=== PATIENT | male | born 1980 | race Caucasian/White ===

== ENCOUNTER 2016-05-17 02:05 | Emergency (ER) | payer OTHER ==
[2016-05-17 02:19] VITALS: RESP 18
[2016-05-17] MEDS ORDERED: DIPH,PERTUS(ACELL)TETVAC-LF 0.5 ML VIAL IM ONE (03:58)
--- NOTE | 2016-05-17 04:02 | ED ---
General Adult HPI - General Chief complaint: Wound/Laceration Stated complaint: Arm Laceration Time Seen by Provider: 05/17/16 03:47 Source: patient, RN notes reviewed Mode of arrival: ambulatory Limitations: no limitations - History of Present Illness Initial comments: This is a 35-year-old male presents the laceration to the right forearm. Patient states his arm went through a window. Patient does not think he is up- to-date on his tetanus shot. Patient denies any numbness/weakness or tingling in hands. Patient denies being on any anticoagulants.Patient denies any recent fever, chills, shortness breath, chest pain, abdominal pain, nausea/vomiting/ diarrhea, back pain, hematuria, headache, or visual changes, or any other complaints. - Related Data Previous Rx's Medication Instructions Recorded Cephalexin [Keflex] 500 mg PO Q12HR 5 Days 05/17/16 Allergies Allergy/AdvReac Type Severity Reaction Status Date / Time FISH Allergy Severe SWELLING Uncoded 05/17/16 02:19 IN THROAT Review of Systems ROS Statement: Those systems with pertinent positive or pertinent negative responses have been documented in the HPI. ROS Other: All systems not noted in ROS Statement are negative. Past Medical History Past Medical History: Musculoskeletal Disorder Additional Past Medical History / Comment(s): BACK PROBLEMS, OCC. BLOOD IN STOOL -HAS COLONOSCOPY SCHEDULED ? HEMORRHOIDS. History of Any Multi-Drug Resistant Organisms: None Reported Additional Past Surgical History / Comment(s): SURGERY ON FINGER FOR INJURY, COLONOSCOPY Past Anesthesia/Blood Transfusion Reactions: No Reported Reaction Past Psychological History: Anxiety, Depression Additional Psychological History / Comment(s): NO RX NOW. Smoking Status: Former smoker Past Alcohol Use History: None Reported Past Drug Use History: Marijuana Additional Drug Use History / Comment(s): CURRENTLY SMOKES MARIJUANA DAILY. General Exam - General Exam Comments Initial Comments: General: The patient is awake and alert, in no distress, and does not appear acutely ill. Neck: The neck is supple, there is no tenderness or JVD. Cardiovascular: There is a regular rate and rhythm. No murmur, rub or gallop is appreciated. Respiratory: Lungs are clear to auscultation, respirations are non-labored, breath sounds are equal. No wheezes, stridor, rales, or rhonchi. Musculoskeletal: Full range of motion, strength 5/5 and Sensation intact. Pulses 2+ bilaterally. Capillary refill is normal at less than 2 seconds. Neurological: A&O x 3. CN II-XII intact, There are no obvious motor or sensory deficits. Coordination appears grossly intact. Speech is normal. Skin: There is an approximately 3 cm laceration to the ulnar aspect of the right distal forearm. Skin is warm and dry and no rashes or lesions are noted. Psychiatric: Normal mood and affect. Limitations: no limitations Course Vital Signs 05/17/16 02:14 Temperature 98.2 F Pulse Rate 95 Respiratory 18 Rate Blood Pressure 151/78 O2 Sat by Pulse 98 Oximetry Procedures - Procedures Initial comment: The skin was anesthetized with 1% lidocaine. The laceration was then cleansed and irrigated with normal saline. The wound was inspected, and there was no evidence of injury to deep structures. No foreign body was noted in the wound. A total of 7 skin sutures were placed utilizing 5-0 Ethilon. Laceration is approx 2.5 cm. Medical Decision Making - Medical Decision Making Is a 35-year-old male presents laceration of the right forearm. Patient is not up-to-date on his tetanus shot and so he received a tetanus shot in the [facility] today. On physical exam there is an approximately 3 cm laceration to the ulnar aspect of the right distal forearm. X-ray of the right forearm was done and reviewed showing: No definite acute fracture or dislocation is suggested in the right forearm. Report read by Dr. Sierra. The skin was anesthetized with 1% lidocaine. The laceration was then cleansed and irrigated with normal saline. The wound was inspected, and there was no evidence of injury to deep structures. No foreign body was noted in the wound. A total of 7 skin sutures were placed utilizing 5-0 Ethilon. Laceration is approx 2.5 cm. Discussed that sutures should be removed in 8-10 days. Discussed suture care. Discussed that patient should not submerge the wound but rinsing and showering are okay. Please use [id number] Tylenol and/or Motrin as needed for any pain. Discussed the patient with a course of Keflex. Discussed Return parameters.Discussed that patient should follow up with PCP in one to 2 days or return to the [facility] for any worsening symptoms or for any further concerns. Patient was receptive to this plan and patient will be discharged home. Disposition Clinical Impression: Laceration Disposition: HOME SELF-CARE Condition: Good Instructions: Laceration (ED), Care For Your Stitches (ED) Additional Instructions: Please have sutures removed in 8-10 days. Please do not submerge the wound but rinsing and showering are okay. Please finish Entire course Of antibiotics. Please use [id number] Tylenol and/or Motrin as needed for any pain. Please follow-up with family doctor in the next 2 days of symptoms have not improved. Please return to emergency room if the symptoms increase or worsen or for any other concerns. Prescriptions: Cephalexin [Keflex] 500 mg PO Q12HR 5 Days Referrals: Asif Price MD [Primary Care Provider] - 1-2 days Time of Disposition: 05:08
--- NOTE | 2016-05-17 04:27 | XR ---
EXAMINATION TYPE: XR forearm RT DATE OF EXAM: 05/17/2016 4:03 AM COMPARISON: NONE HISTORY: Right wrist laceration TECHNIQUE: 2 radiographs of right forearm were obtained. FINDINGS: No definite acute fracture or dislocation is noted in the right wrist. Small densities are noted in the soft tissues of distal right forearm in the dorsal aspect in the lat eral view and is probably related to laceration changes. No definite radiopaque foreign body is sugge sted in the soft tissues of right forearm. Laceration or skin defect is noted in the ulnar aspect of right wrist in the dorsal view. IMPRESSION: No definite acute fracture or dislocation is suggested in the right forearm.
[2016-05-17 05:16] VITALS: BP 144/69; PULSE 88; TEMP 97
== END 2016-05-17 05:16 | disposition home or self-care (01) ==
LOC: EC 02:05
DX: S51.811A Laceration without foreign body of right forearm, initial encounter (principal); F12.90 Cannabis use, unspecified, uncomplicated; W25.XXXA Contact with sharp glass, initial encounter; Z87.891 Personal history of nicotine dependence; Z91.013 Allergy to seafood; Z23 Encounter for immunization
CPT/HCPCS: 12001; 90471; 90715; 99282

== ENCOUNTER 2017-08-21 17:01 | Emergency (ER) | payer OTHER ==
[2017-08-21 17:15] VITALS: BP 135/82; PULSE 76; RESP 18; TEMP 99
[2017-08-21] MEDS ORDERED: GELATIN SPONGE,ABSORB (SMALL) 1 EACH SPONGE TOPICAL STA (17:21)
--- NOTE | 2017-08-21 17:34 | ED ---
General Adult HPI - General Chief complaint: Wound/Laceration Stated complaint: Finger Laceration Time Seen by Provider: 08/21/17 17:14 Source: patient, RN notes reviewed Mode of arrival: ambulatory Limitations: no limitations - History of Present Illness Initial comments: 36-year-old male presents to the emergency department for a chief complaint of left thumb injury. Patient states he was cutting tile when he went to cut a corner of the tile off without using proper equipment. Patient states the wound is stinging. Patient states his tetanus is up-to-date as of 1 or 2 years ago as he had a previous laceration. Patient has no other injuries from this incident. He denies any other complaints including headache, shortness of breath, abdominal pain, visual changes, nausea or vomiting. - Related Data Home Medications Medication Instructions Recorded Confirmed No Known Home Medications [No 08/21/17 08/21/17 Known Home Medications] Allergies Allergy/AdvReac Type Severity Reaction Status Date / Time FISH Allergy Severe SWELLING Uncoded 08/21/17 17:11 IN THROAT Review of Systems ROS Statement: Those systems with pertinent positive or pertinent negative responses have been documented in the HPI. ROS Other: All systems not noted in ROS Statement are negative. Past Medical History Past Medical History: Musculoskeletal Disorder Additional Past Medical History / Comment(s): BACK PROBLEMS, OCC. BLOOD IN STOOL -HAS COLONOSCOPY SCHEDULED ? HEMORRHOIDS. History of Any Multi-Drug Resistant Organisms: None Reported Additional Past Surgical History / Comment(s): SURGERY ON FINGER FOR INJURY, COLONOSCOPY Past Anesthesia/Blood Transfusion Reactions: No Reported Reaction Past Psychological History: Anxiety, Depression Smoking Status: Former smoker Past Alcohol Use History: None Reported Past Drug Use History: Marijuana General Exam Limitations: no limitations General appearance: alert, in no apparent distress Respiratory exam: Present: normal lung sounds bilaterally. Absent: respiratory distress, wheezes, rales, rhonchi, stridor Cardiovascular Exam: Present: regular rate, normal rhythm, normal heart sounds. Absent: bradycardia, tachycardia, irregular rhythm Extremities exam: Present: full ROM (Patient has full range of motion of the left thumb.), tenderness (Tenderness to the affected area of the left thumb.), normal capillary refill (Refill less than 2 seconds in the left thumb. Radial pulse 2+ in upper extremities bilaterally.), other (There is a 1 cm in length avulsion of the soft tissue of the left thumb and nail. No deep structure involvement. No bone involvement.). Absent: pedal edema, joint swelling Course Vital Signs 08/21/17 17:11 Temperature 99 F Pulse Rate 76 Respiratory 18 Rate Blood Pressure 135/82 O2 Sat by Pulse 95 Oximetry Medical Decision Making - Medical Decision Making 36-year-old male presents to the emergency department for chief complaint of left thumb injury. Patient states he was cutting tile when he actually cut his left thumb. Patient is up-to-date on his tetanus as of about one or 2 years ago. On exam, neurovascular is intact in the left thumb. There is a 1 cm lengthwise avulsion of the lateral aspect of the left thumb. The avulsion included soft tissue as well as part of the nail. There is no deep tissue or bone involvement. X-ray of the left thumb demonstrates no acute fracture or bone involvement. Gelfoam was used to stop the bleeding and patient was bandaged. He is to let the Gelfoam fall off on its own tomorrow. Patient is aware he should apply antibiotic ointment and bandage to the area for a couple of days until it heals. He is to return to the emergency department if he has any worsening symptoms or complications including signs of infection or fever. He is to take Motrin or Tylenol for pain relief. He is to follow up with the primary care provider in one to 2 days. Patient is aware of this. Disposition Clinical Impression: Laceration, Avulsion of fingertip Disposition: HOME SELF-CARE Condition: Good Instructions: Skin Avulsion (ED) Additional Instructions: Please return to the emergency department if you have any worsening symptoms or signs of infection including redness, swelling, drainage, or fever. Please follow-up with primary care provider in one to 2 days. The Gelfoam will fall off on its own in a day or 2. Keep the area clean. You may have Motrin or Tylenol for pain relief. Is patient prescribed a controlled substance at d/c from ED?: No Referrals: Asif Price MD [Primary Care Provider] - 1-2 days Time of Disposition: 17:34
--- NOTE | 2017-08-21 18:13 | XR ---
EXAMINATION TYPE: XR finger LT DATE OF EXAM: 08/21/2017 COMPARISON: NONE HISTORY: 36-year-old male with pain after injury with saw TECHNIQUE: 3 views coned left thumb FINDINGS: No acute fracture, subluxation, or dislocation is seen. Mild soft tissue swelling of the thumb. IMPRESSION: No acute osseous abnormality seen involving the thumb.
== END 2017-08-21 18:20 | disposition home or self-care (01) ==
LOC: EC 17:01
DX: S61.112A Laceration without foreign body of left thumb with damage to nail, initial encounter (principal); Z91.013 Allergy to seafood; Z87.891 Personal history of nicotine dependence; Z98.890 Other specified postprocedural states; W26.0XXA Contact with knife, initial encounter; Y93.89 Activity, other specified
CPT/HCPCS: 99283

== ENCOUNTER → 2019-04-07 | Outpatient (CLI) | payer OTHER ==
[2019-04-07 20:13] LABS: C Reactive Protein <0.4 mg/dL (0.0-0.8); Creatine Kinase 164 U/L (35-257)
== END | disposition home or self-care (01) ==
LOC: LABWHC1 11:48
PROVIDERS: ATTEND Psychiatry & Neurology Neurology
DX: G72.9 Myopathy, unspecified (principal)
CPT/HCPCS: 36415; 82085; 82550; 85652; 86140

== ENCOUNTER → 2019-05-04 | Outpatient (CLI) | payer OTHER ==
[2019-05-04 19:20] LABS: Cardiolipin Ab IgG Interp NEGATIVE (NEGATIVE); Cardiolipin Ab IgM Interp NEGATIVE (NEGATIVE); Cardiolipin IgA Antibody <0.5 U/mL
== END | disposition home or self-care (01) ==
LOC: LABWHC1 14:22
PROVIDERS: ATTEND Psychiatry & Neurology Neurology
DX: G35 Multiple sclerosis (principal); G36.0 Neuromyelitis optica [Devic]; E53.8 Deficiency of other specified B group vitamins
CPT/HCPCS: 36415; 82607; 82746; 86147; 86618; 86780

== ENCOUNTER 2019-05-15 08:47 | Day surgery (SDC) | payer OTHER ==
[2019-05-11 15:08] VITALS: BMI 22.4
[~2019-05-15 08:47] MED LIST: LACTATED RINGERS 1,000 ML IV SCH
[2019-05-15 09:55] VITALS: RESP 16; TEMP 97.6
[2019-05-15] MEDS ORDERED: LIDOCAINE 1% 20 ML VIAL (10MG/ML) FOR IV START INTRADERMA ONE (10:04)
[2019-05-15] MEDS ORDERED: fentaNYL (PF) 50 MCG/ML 2 ML AMP ONE (10:42)
[2019-05-15] MEDS ORDERED: MIDAZOLAM 2 MG/2 ML VIAL ONE (10:42)
--- NOTE | 2019-05-15 10:59 | P.PCN ---
Date of Procedure: 05/15/19 Procedure(s) Performed: Preoperative diagnosis: Rule out multiple sclerosis Post operative diagnoses: Same Anesthesia local infiltration with lidocaine 1% 2 mL., [moderate sedation with fentanyl and Versed], sedation time 8 minutes Condition: stable Complication: none. Description of the procedure procedure risk and benefits discussed with the patient and family, consent signed. Patient was taken to the procedure area placed in left lateral position. Local infiltration of the skin and subcutaneo us tissue with lidocaine 1%. A 20-gauge Quincke-type needle advanced slowly at L3-4 interlaminar space. A total of 10 ML of clear cerebrospinal fluid collected in 4 tubes. Then, the needle was removed and a Band-Aid applied and patient tolerated the procedure well without any complications.
[2019-05-15 12:38] VITALS: BP 115/69; PULSE 55
[2019-05-15] MEDS ORDERED: IV FLUID CONTINUATION 1,000 ML IV ONE (13:29)
[2019-05-15 15:30] LABS: Glucose,CSF 49 mg/dL (40-70)
[2019-05-15 15:40] LABS: Total Protein,CSF 56 mg/dL (12-60)
[2019-05-15 16:09] LABS: CSF Tube Number 4
[2019-05-15 16:10] LABS: Appearance,CSF Clear; Nucleated Cells, CSF 1 u/L (0-5); Red Blood Cell,CSF 1 u/L (0-10)
[2019-05-17 13:04] LABS: IgG - CSF 4.4 mg/dL (0.0 - 3.4); IgG Synthesis Rate 7.44 mg/day (0.00 - 3.00); IgG/Albumin Index (CSF) 0.92 (0.00 - 0.77)
== END 2019-05-15 13:30 | disposition home or self-care (01) ==
LOC: ORPAIN 08:47
PROVIDERS: ATTEND Anesthesiology
DX: R53.1 Weakness (principal)
CPT/HCPCS: 84157; 82945; 82040; 82042; 82784; 83916; 83873; 89050; 82438; 62270; J2250; J3010; 86255

== ENCOUNTER → 2019-06-05 | Outpatient (CLI) | payer OTHER ==
[2019-06-05 17:07] LABS: Basophils % (A) 0 %; Eosinophils # (A) 0.2 k/uL (0-0.7); Eosinophils % (A) 3 %; HCT 43.1 % (39.0-53.0); HGB 13.8 gm/dL (13.0-17.5); Lymphocytes # (A) 2.1 k/uL (1.0-4.8); Lymphocytes % (A) 35 %; MCH 30.3 pg (25.0-35.0); MCV 94.7 fL (80.0-100.0); Mean Platelet Volume 7.4; Monocytes # (A) 0.3 k/uL (0-1.0); Monocytes % (A) 5 %; Neutrophils # (A) 3.2 k/uL (1.3-7.7); Neutrophils % (A) 55 %; Platelet Count 200 k/uL (150-450); RBC 4.55 m/uL (4.30-5.90); RDW 12.3 % (11.5-15.5); WBC 5.9 k/uL (3.8-10.6)
[2019-06-06 01:03] LABS: ALT 18 U/L (10-49); AST 18 U/L (14-35)
== END | disposition home or self-care (01) ==
LOC: LABWHC1 15:41
PROVIDERS: ATTEND Psychiatry & Neurology Neurology
DX: G35 Multiple sclerosis (principal)
CPT/HCPCS: 36415; 84450; 84460; 85025

== ENCOUNTER → 2019-06-29 | Outpatient (CLI) | payer OTHER ==
[2019-06-29 16:11] LABS: Basophils % (A) 0 %; Eosinophils # (A) 0.1 k/uL (0-0.7); Eosinophils % (A) 2 %; HCT 44.7 % (39.0-53.0); Lymphocytes # (A) 1.8 k/uL (1.0-4.8); Lymphocytes % (A) 30 %; MCH 29.4 pg (25.0-35.0); MCHC 31.3 g/dL (31.0-37.0); MCV 93.9 fL (80.0-100.0); Mean Platelet Volume 6.7; Monocytes # (A) 0.4 k/uL (0-1.0); Monocytes % (A) 6 %; Neutrophils # (A) 3.8 k/uL (1.3-7.7); Neutrophils % (A) 61 %; Platelet Count 201 k/uL (150-450); RBC 4.76 m/uL (4.30-5.90); RDW 12.5 % (11.5-15.5); WBC 6.2 k/uL (3.8-10.6)
[2019-06-30 00:26] LABS: ALT 17 U/L (10-49); AST 19 U/L (14-35)
== END | disposition home or self-care (01) ==
LOC: LABWHC1 15:32
PROVIDERS: ATTEND Psychiatry & Neurology Neurology
DX: G35 Multiple sclerosis (principal)
CPT/HCPCS: 36415; 84450; 84460; 85025; 86480

== ENCOUNTER → 2022-03-11 | Outpatient (CLI) | payer BC, MEDICARE ==
--- NOTE | 2022-03-12 08:45 | XR ---
EXAMINATION TYPE: XR Hip Bilateral Complete DATE OF EXAM: 03/11/2022 COMPARISON: NONE HISTORY: 41-year-old male M25.551 Pain in Rt Hip, M25.552 Pain in Lt Hip TECHNIQUE: 2 views each side FINDINGS: Both hips appear intact as does the pubic symphysis. Joint spaces maintained. No acute fracture, subl uxation, or dislocation. IMPRESSION: No acute osseous abnormality seen.
== END | disposition home or self-care (01) ==
LOC: RADXRMAIN 16:19
PROVIDERS: ATTEND Physical Medicine & Rehabilitation
DX: M25.551 Pain in right hip (principal); M25.552 Pain in left hip
CPT/HCPCS: 73521

== ENCOUNTER → 2022-08-21 | Outpatient (CLI) | payer MEDICARE, BC ==
--- NOTE | 2022-08-21 15:57 | US ---
EXAMINATION TYPE: US groin LT DATE OF EXAM: 08/21/2022 COMPARISON: NONE CLINICAL INDICATION: Male, 41 years old with history of R10.2 PELVIC AND PERINEAL PAIN; lt shooting g roin pain for months, no palpable, patient has MS and this pain effects his walking FINDINGS: Soft tissue scan of left groin does not produce a hernia or any other abnormality. IMPRESSION: No suspicious mass or fluid collection or obvious hernia defect on images saved.
== END | disposition home or self-care (01) ==
LOC: RADUSWWP 15:01
PROVIDERS: ATTEND Family Medicine
DX: R10.2 Pelvic and perineal pain (principal); R10.32 Left lower quadrant pain

== ENCOUNTER → 2022-09-10 | Outpatient (CLI) | payer MEDICARE, BC ==
--- NOTE | 2022-09-12 12:22 | MR ---
EXAMINATION TYPE: MR knee RT wo con DATE OF EXAM: 09/10/2022 COMPARISON: None HISTORY: 41-year-old male M25.561, right knee pain TECHNIQUE: Multiplanar, multisequence imaging of the right knee is performed without IV contrast. FINDINGS: The ACL, PCL and LCL complex are intact. There is some edema along either side of the intact MCL, particularly near the femoral attachment. There is some abnormal signal and diminutive appearance of the medial meniscus at the junction of the body and posterior horn. Overall preserved medial compartment articular cartilage volume. The lateral meniscus is intact with overall preserved lateral compartment articular cartilage volume. Patellofemoral compartment articular cartilage is maintained. Extensor mechanism is intact. There is some mild intermediate signal involving the deep fibers of the proximal patellar tendon suggesting some tendinosis. Nonspecific mild anterior soft tissue swelling. There is a small leaking Preston's cyst measuring 3.5 x 1.7 cm. Small to moderate knee joint effusion a nd mild chronic synovitis. Nonspecific mild edema within the suprapatellar fat pad. Some scattered periarticular osseous edema. Greatest along the anterolateral lip of the tibial platea u where there may be a subtle 1.2 cm wide by 9 mm AP nondepressed subchondral fracture.. Some scattered soft tissue edema is present throughout. Normal popliteal artery anatomy. Normal muscl e bulk. No suspicious bone marrow replacement. IMPRESSION: 1. Grade 1 MCL sprain at the femoral attachment. 2. Abnormal signal at the junction of the posterior horn and body of the medial meniscus and slightly diminutive appearance here. Underlying meniscal tear is suggested. 3. Focal subchondral marrow edema along the anterolateral lip of the tibial plateau measuring 1.2 x 0 .9 cm. A subtle nondepressed subchondral impaction fracture not excluded. 4. Additional scattered mild patchy periarticular bone marrow edema, possible bone bruises especially in the setting of injury. If no injury, consider short interval follow-up to assess for any evolving changes. There is only a small to moderate knee joint effusion which makes a crystalline or inflamma tory arthropathy less likely. 5. Small leaking Preston's cyst.
== END | disposition home or self-care (01) ==
LOC: RADMRIMAIN 12:07
PROVIDERS: ATTEND Family Medicine
DX: S83.411A Sprain of medial collateral ligament of right knee, initial encounter (principal); M25.461 Effusion, right knee; M71.21 Synovial cyst of popliteal space [Baker], right knee; R60.0 Localized edema